=== PATIENT | female | born 1975 | race Caucasian/White ===

== ENCOUNTER → 2020-07-08 07:58 | Outpatient (BNVA) | payer MEDICAID, SELFPAY | PROVIDERS: Family Provider Physician Assistant Medical; Visit Provider Social Worker Clinical | DX: F60.3 Borderline personality disorder (principal); F41.1 Generalized anxiety disorder; F33.2 Major depressive disorder, recurrent severe without psychotic features; F43.12 Post-traumatic stress disorder, chronic | CPT/HCPCS: 90834 ==

== ENCOUNTER 2020-07-17 11:28 | Emergency (ER) | payer MEDICAID, SELFPAY ==
[2020-07-17 11:34] VITALS: BP 163/95; PULSE 103; RESP 18; TEMP 36.3; O2SAT 96; BMI 30.1
--- NOTE | 2020-07-17 11:43 | XRR_ITS ---
PROCEDURE INFORMATION: Exam: XR Lumbosacral Spine, 2 or 3 Views Exam date and time: 07/17/2020 12:00 PM Age: 44 years old Clinical indication: Injury or trauma; Fall; Blunt trauma (contusions or hematomas); Additional info: Back pain S/P fall TECHNIQUE: Imaging protocol: XR of the lumbosacral spine, 2 or 3 views. COMPARISON: CTA Chest w Abd/Pel w* 12/07/2016 11:08 AM FINDINGS: Bones/joints: There are degenerative changes throughout the visualized lower thoracic and lumbar spine including marginal osteophyte formations, endplate degenerative changes, and facet arthropathy. There are mild degenerative changes across the right sacroiliac joint. Soft tissues: Unremarkable. XR/XR lumbar spine 2-3V* [id number] IMPRESSION: There are degenerative changes as described above. No evidence for acute fracture.
--- NOTE | 2020-07-17 11:43 | CTR_ITS ---
PROCEDURE INFORMATION: Exam: CT Cervical Spine Without Contrast Exam date and time: 07/17/2020 12:00 PM Age: 44 years old Clinical indication: Injury or trauma; Fall; Blunt trauma; Additional info: Neck pain S/P fall TECHNIQUE: Imaging protocol: Computed tomography images of the cervical spine without contrast. Radiation optimization: All CT scans at this facility use at least one of these dose optimization techniques: automated exposure control; mA and/or kV adjustment per patient size (includes targeted exams where dose is matched to clinical indication); or iterative reconstruction. COMPARISON: CR Cervical Spine AP/Lat* [id number] 04/05/2015 11:31 AM RADIATION DOSE METRICS: Total DLP (mGy-cm): 604.98 FINDINGS: Vertebrae: There are degenerative changes throughout the visualized spine including marginal osteophyte formations, endplate degenerative changes, and facet arthropathy. C2-C3: There is a disc bulge which is eccentric to the right abutting the anterior surface of the cervical cord. C3-C4: Minimal disc bulge indents the anterior thecal sac. C4-C5: There is a broad-based disc osteophyte complex abutting the anterior surface of the cervical cord. There is moderate narrowing of the left neural foramen and mild to moderate narrowing of the right neural foramen. C5-C6: There is a disc bulge which abuts the anterior surface of the cervical cord. C6-C7: There is a disc bulge with a possible superimposed midline protrusion abutting the anterior surface of the cervical cord. C7-T1: No significant disc protrusion. No severe spinal canal stenosis. No significant neural foraminal narrowing. Soft tissues: Unremarkable. Lungs: Lung apices are normal. CT/CT cervical spin wo con* [id number] IMPRESSION: Multilevel, multifactorial degenerative changes are present as described above. No evidence for acute fracture. Radiation Dose CTDIVOL = (mGy): DLP = 604.98 (mGy-cm)
--- NOTE | 2020-07-17 11:45 | W.ED.BACK ---
HPI - Back Pain/Injury General: Chief Complaint: Back Pain/Injury Stated Complaint: fall yesterday-neck and back pain Time Seen by Provider: 07/17/20 11:31 History of Present Illness: HPI Narrative: 44-year-old female patient presents to the emergency department with neck pain and lower back pain. She reports sustained a fall last night while walking down the stairs. States left ankle gave out causing her to fall down 5 stairs in her home, reports landed on hardwood floor. Denies neck pain after fall last night however awoke this morning with low back and neck pain. 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 She denies further injuries. 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, chronic) Onset (ago): day(s) (1) Timing: constant and progressively worsening Severity: moderate Similar Symptoms Previously: No Quality: dull, aching and spasming Location: lumbar spine (and neck (posterior)) Radiation: none Exacerbating factors: movement and walking Relieving factors: immobilization Context: fall (9 pm while walking down stairs, ankle gave out, slipped and fell down 5 steps on hardwood floor) Associated symptoms: Reports arthralgias (chronic) and numbness (Chronic from Mcdonald spotted fever, neuropathy to extremities); Deny abdominal pain, chills, change in bowel habits, difficulty walking, dysuria, fatigue, fecal incontinence, nausea or weakness Treatments prior to arrival: other (none) Work related injury: No Review of Systems General: Reports: 10 or more systems reviewed and unremarkable except in HPI and below Const: Denies: chills, body aches, fatigue or malaise Eyes: Denies: blurry vision or eye redness ENMT: Denies: throat pain, dental pain or disequilibrium Card: Denies: chest pain, palpitations or irregular heart rhythm Resp: Denies: dyspnea, productive cough, non-productive cough or wheezing GI: Denies: abdominal pain, nausea, fecal incontinence or change in bowel habits : Denies: dysuria Musc: Reports: neck pain, back pain and limited range of motion (posterior neck and lumbar spine); Denies: joint pain, joint swelling, muscle cramps or muscle weakness Skin/Breast: Denies: rash or pruritus Neuro: Denies: headache(s), sensory changes, difficulty walking, dizziness, vertigo, confusion or difficulty communicating thoughts Cj/Lymph: Denies: easy bruising PFSH ED PFSH: Medical History Age related osteoporosis Broken bones right foot - dropfoot Fibromyalgia Heel spur Migraine Unspecified personality disorder Social History Smoking and tobacco status: never smoked Second hand smoke exposure: No Smoking risk assessment/counseling performed?: Yes Tobacco counseling given: counseling >3 minutes Current gender identity: Female Physical Exam Const: COMMON NORMALS: no acute distress, average body habitus, patient oriented x3, healthy appearing, alert and well nourished GENERAL APPEARANCE: cooperative, comfortable, well kempt, well developed and well hydrated HENMT: COMMON NORMALS: normocephalic, Normal external nose present and moist oral mucous membranes HEAD & SCALP: normocephalic NOSE: Normal external nose present Eye: COMMON NORMALS: Equal, round and reactive pupils present and EOMs intact bilaterally GENERAL EYE: appearance normal, both eyes and all related structures PUPIL: Yes Equal, round and reactive pupils present Neck/C-Spine: COMMON NORMALS: full ROM and no lymphadenopathy GENERAL: Yes normal visual inspection, Yes trachea midline, No anterior neck swelling and No tracheal deviation CERVICAL SPINE: Yes cervical ROM normal, Yes pain with cervical ROM with rotation to the right and with rotation to the left, No Cervical spine tenderness, Yes Paracervical muscle tenderness right>left, Yes Paracervical spasm bilateral and Yes Trapezius muscle tenderness right Lymph: LYMPHATIC: no lymphadenopathy noted Chest: COMMONS NORMALS: normal inspection of the chest and normal palpation of entire chest wall Resp: COMMON NORMALS: normal respiratory effort, No retractions, No use of accessory muscles and clear to auscultation bilaterally EFFORT & INSPECTION: Yes able to speak in complete sentences AUSCULTATION: clear to auscultation bilaterally Cardio: COMMON NORMALS: regular rate, regular rhythm, S1 normal heart sound present, S2 normal heart sound present and Peripheral pulses 2+ throughout RATE: regular rate RHYTHM: regular rhythm HEART SOUNDS: S1 normal heart sound present and S2 normal heart sound present PERIPHERAL PULSES: Peripheral pulses 2+ throughout GI: COMMON NORMALS: Normal to inspection, nondistended, normoactive bowel sounds present, Soft to palpation and non-tender INSPECTION: Yes normal to inspection PALPATION: Yes Soft to palpation : COMMON NORMALS: Yes no CVA tenderness BLADDER/KIDNEY EXAM: Yes no CVA tenderness Back/Pelvis: COMMON NORMALS: no CVA tenderness and thoracic and lumbar spine normal to inspection THORACIC SPINE/UPPER BACK: Yes normal to inspection, Yes thoracic ROM normal, No pain with ROM, No thoracic spinal tenderness, No paraspinal muscle tenderness and No paraspinal muscle spasm LUMBAR SPINE/LOWER BACK: Yes normal to inspection, Yes lumbar spinal tenderness Lumbar spinal tenderness location: L3 and L4, Yes paraspinal muscle spasm Lumbar paraspinal muscle spasm: right and Yes straight leg raise negative bilaterally PELVIS: Yes buttocks normal SACROILIAC JOINTS: Yes SI joints normal SACRUM: no ecchymosis COCCYX: no swelling Extremity: COMMON NORMALS: normal to inspection and capillary refill normal Neuro: PIA COMA SCALE: document GCS findings Pia coma scale eye opening: Spontaneous Pia coma scale verbal response: Orientated Pia coma scale motor response: Obey commands Pia coma scale total score: 15 COMMON NORMALS: patient oriented x3 and no focal motor deficits SENSORIUM/ORIENTATION: Yes alert SPEECH: speech normal GAIT: Yes Normal gait present MOTOR EXAM: 5/5 motor strength present throughout Psych: COMMON NORMALS: mental status grossly normal, Normal thought process present and cooperative APPEARANCE: Yes well kempt ACTIVITY/MOTOR BEHAVIOR: Yes appropriate eye contact THOUGHT PROCESS: Normal thought process present Skin: COMMON NORMALS: no rashes or lesions noted and turgor normal GENERAL SKIN EXAM: no rashes or lesions noted and turgor normal Course Vital Signs: Vital signs: Vital Signs Temperature 97.3 F L 07/17/20 11:34 Pulse Rate 103 H 07/17/20 11:34 Respiratory Rate 18 07/17/20 11:34 Blood Pressure 163/95 07/17/20 11:34 Pulse Oximetry 96 07/17/20 11:34 MDM - Back Pain/Injury Imaging Data^: Other Xray: Radiologist's impression: [address] [place] [address] XRay Report Signed Patient: PamelaMansi Unit #: [id number] : 1975 Age/Sex: 44 / F ADM Date: 07/17/20 Loc: ER Room/Bed: Attending Dr: Ordering Provider/Ordering MD: Marlene Lanier Date of Service: 07/17/20 Procedure(s): XR lumbar spine 2-3V* [id number] Accession Number(s): [id number] Report Number: [id number] PROCEDURE INFORMATION: Exam: XR Lumbosacral Spine, 2 or 3 Views Exam date and time: 07/17/2020 12:00 PM Age: 44 years old Clinical indication: Injury or trauma; Fall; Blunt trauma (contusions or hematomas); Additional info: Back pain S/P fall TECHNIQUE: Imaging protocol: XR of the lumbosacral spine, 2 or 3 views. COMPARISON: CTA Chest w Abd/Pel w* 12/07/2016 11:08 AM FINDINGS: Bones/joints: There are degenerative changes throughout the visualized lower thoracic and lumbar spine including marginal osteophyte formations, endplate degenerative changes, and facet arthropathy. There are mild degenerative changes across the right sacroiliac joint. Soft tissues: Unremarkable. XR/XR lumbar spine 2-3V* [id number] IMPRESSION: There are degenerative changes as described above. No evidence for acute fracture. Dictated By: Lorin Nelson MD Signed By: Lorin Nelson MD Signed Date/Time: 07/17/20 1230 DD/ [address]: Radiologist's impression: [address] [address] [address] Scan Report Signed Patient: Mansi Santiago Unit #: [id number] : 1975 Age/Sex: 44 / F ADM Date: 07/17/20 Loc: ER Room/Bed: Attending Dr: Ordering Provider/Ordering MD: Marlene Lanier Date of Service: 07/17/20 Procedure(s): CT cervical spin wo con* [id number] Accession Number(s): [id number] Report Number: [id number] PROCEDURE INFORMATION: Exam: CT Cervical Spine Without Contrast Exam date and time: 07/17/2020 12:00 PM Age: 44 years old Clinical indication: Injury or trauma; Fall; Blunt trauma; Additional info: Neck pain S/P fall TECHNIQUE: Imaging protocol: Computed tomography images of the cervical spine without contrast. Radiation optimization: All CT scans at this facility use at least one of these dose optimization techniques: automated exposure control; mA and/or kV adjustment per patient size (includes targeted exams where dose is matched to clinical indication); or iterative reconstruction. COMPARISON: CR Cervical Spine AP/Lat* [id number] 04/05/2015 11:31 AM RADIATION DOSE METRICS: Total DLP (mGy-cm): 604.98 FINDINGS: Vertebrae: There are degenerative changes throughout the visualized spine including marginal osteophyte formations, endplate degenerative changes, and facet arthropathy. C2-C3: There is a disc bulge which is eccentric to the right abutting the anterior surface of the cervical cord. C3-C4: Minimal disc bulge indents the anterior thecal sac. C4-C5: There is a broad-based disc osteophyte complex abutting the anterior surface of the cervical cord. There is moderate narrowing of the left neural foramen and mild to moderate narrowing of the right neural foramen. C5-C6: There is a disc bulge which abuts the anterior surface of the cervical cord. C6-C7: There is a disc bulge with a possible superimposed midline protrusion abutting the anterior surface of the cervical cord. C7-T1: No significant disc protrusion. No severe spinal canal stenosis. No significant neural foraminal narrowing. Soft tissues: Unremarkable. Lungs: Lung apices are normal. CT/CT cervical spin wo con* [id number] IMPRESSION: Multilevel, multifactorial degenerative changes are present as described above. No evidence for acute fracture. Radiation Dose CTDIVOL = (mGy): DLP = 604.98 (mGy-cm) Dictated By: Lorin Nelson MD Discharge Plan Discharge Patient Disposition: Home Clinical Impression: Fall against object, DDD (degenerative disc disease), cervical, DDD (degenerative disc disease), lumbar Condition: Stable Prescriptions: New methocarbamol 750 mg tablet 750 mg PO Q6H Qty: 20 RF: 0 No Action Zyrtec 10 mg capsule 20 mg PO DAILY PRN (Reason: allergy symptoms) RF: 0 gabapentin 600 mg tablet 600 mg PO BID Qty: 60 RF: 2 doxepin 100 mg capsule 200 mg PO .HS Qty: 60 RF: 2 lamotrigine 25 mg tablet 25 mg PO DAILY Qty: 105 RF: 1 Discharge Orders: Discharge ED (Routine); Ordered 07/17/20 Ordered By: Marlene Lanier Referrals: Дмитрий Coley [Primary Care Provider] - Discharge Diet: Usual diet Discharge Activity: Limit activity as instructed Patient Instructions: Contusion in Adults (ED), Degenerative Disc Disease (ED) Activity Restrictions/Additional Instructions: Take medication with food Return to the emergency department if you develop weakness or inability to feel your extremities, worst headache of your life or other concerning symptoms Follow-up with your primary care provider this week if not improving Rest at home today and tomorrow, apply warm moist heat to the affected areas to help with pain May take Tylenol as needed for pain to supplement pain need Take Advil 3 tablets three times daily as needed for pain, take with food to avoid stomach upset Coding Level of Care Code ED Donor Services Specialist for Chris Fwd Exam Comprehensive
[2020-07-17] MEDS: acetaminophen 325 mg Tablet 650 MG PO (12:51)
[2020-07-17] MEDS: orphenadrine 30 mg/mL Inj 2 mL 60 MG IM (12:52)
[2020-07-17 12:54] VITALS: BP 178/97; PULSE 96; RESP 18; O2SAT 97
== END 2020-07-17 12:54 | disposition home or self-care (01) ==
PROVIDERS: Emergency Provider Nurse Practitioner Family; PCP Physician Assistant Medical
DX: M50.30 Other cervical disc degeneration, unspecified cervical region (principal); M51.36 Other intervertebral disc degeneration, lumbar region
CPT/HCPCS: 12345; 72100; 72125; 96372; 99281; 99283; J2360

== ENCOUNTER → 2020-07-19 08:11 | Outpatient (BNVA) | payer MEDICAID, SELFPAY | PROVIDERS: PCP Physician Assistant Medical; Visit Provider Social Worker Clinical | DX: F41.1 Generalized anxiety disorder (principal); F33.2 Major depressive disorder, recurrent severe without psychotic features; F43.12 Post-traumatic stress disorder, chronic; F60.3 Borderline personality disorder | CPT/HCPCS: 90834 ==

== ENCOUNTER → 2020-08-02 08:11 | Outpatient (BNVA) | payer MEDICAID, SELFPAY | PROVIDERS: Family Provider Physician Assistant Medical; Visit Provider Social Worker Clinical | DX: F60.3 Borderline personality disorder (principal); F41.1 Generalized anxiety disorder; F33.2 Major depressive disorder, recurrent severe without psychotic features; F43.12 Post-traumatic stress disorder, chronic | CPT/HCPCS: 90834 ==

== ENCOUNTER → 2020-08-09 08:19 | Outpatient (BNVA) | payer MEDICAID, SELFPAY | PROVIDERS: Family Provider Physician Assistant Medical; Visit Provider Social Worker Clinical | DX: F60.3 Borderline personality disorder (principal); F41.1 Generalized anxiety disorder; F33.2 Major depressive disorder, recurrent severe without psychotic features; F43.12 Post-traumatic stress disorder, chronic | CPT/HCPCS: 90834 ==

== ENCOUNTER → 2020-08-16 08:53 | Outpatient (BNVA) | payer MEDICAID, SELFPAY | PROVIDERS: Family Provider Physician Assistant Medical; Visit Provider Social Worker Clinical | DX: F60.3 Borderline personality disorder (principal); F41.1 Generalized anxiety disorder; F33.2 Major depressive disorder, recurrent severe without psychotic features; F43.12 Post-traumatic stress disorder, chronic | CPT/HCPCS: 90834 ==

== ENCOUNTER → 2020-08-25 07:52 | Outpatient (BNVA) | payer MEDICAID, SELFPAY | PROVIDERS: Family Provider Physician Assistant Medical; Visit Provider Social Worker Clinical | DX: F60.3 Borderline personality disorder (principal); F41.1 Generalized anxiety disorder; F33.2 Major depressive disorder, recurrent severe without psychotic features; F43.12 Post-traumatic stress disorder, chronic | CPT/HCPCS: 90834 ==

== ENCOUNTER → 2020-09-01 08:10 | Outpatient (BNVA) | payer MEDICAID, SELFPAY | PROVIDERS: Family Provider Physician Assistant Medical; Visit Provider Social Worker Clinical | DX: F60.3 Borderline personality disorder (principal); F33.2 Major depressive disorder, recurrent severe without psychotic features; F41.1 Generalized anxiety disorder; F43.12 Post-traumatic stress disorder, chronic | CPT/HCPCS: 90832 ==

== ENCOUNTER → 2020-09-08 07:33 | Outpatient (BNVA) | payer MEDICAID, SELFPAY | PROVIDERS: Family Provider Physician Assistant Medical; Visit Provider Social Worker Clinical | DX: F60.3 Borderline personality disorder (principal); F41.1 Generalized anxiety disorder; F33.2 Major depressive disorder, recurrent severe without psychotic features; F43.12 Post-traumatic stress disorder, chronic | CPT/HCPCS: 90834 ==

== ENCOUNTER → 2020-09-22 07:39 | Outpatient (BNVA) | payer MEDICAID, SELFPAY | PROVIDERS: Family Provider Physician Assistant Medical; Visit Provider Social Worker Clinical | DX: F60.3 Borderline personality disorder (principal); F41.1 Generalized anxiety disorder; F33.2 Major depressive disorder, recurrent severe without psychotic features; F43.12 Post-traumatic stress disorder, chronic | CPT/HCPCS: 90834 ==

== ENCOUNTER → 2020-09-29 07:31 | Outpatient (BNVA) | payer MEDICAID, SELFPAY | PROVIDERS: Family Provider Physician Assistant Medical; Visit Provider Social Worker Clinical | DX: F60.3 Borderline personality disorder (principal); F41.1 Generalized anxiety disorder; F33.2 Major depressive disorder, recurrent severe without psychotic features; F43.12 Post-traumatic stress disorder, chronic | CPT/HCPCS: 90834 ==

== ENCOUNTER → 2020-10-06 08:06 | Outpatient (BNVA) | payer MEDICAID, SELFPAY | PROVIDERS: Family Provider Physician Assistant Medical; Visit Provider Psychiatry & Neurology Psychiatry | DX: F60.3 Borderline personality disorder (principal); F41.1 Generalized anxiety disorder; F33.2 Major depressive disorder, recurrent severe without psychotic features; F43.12 Post-traumatic stress disorder, chronic | CPT/HCPCS: 99213 ==

== ENCOUNTER → 2020-10-13 07:32 | Outpatient (BNVA) | payer MEDICAID, SELFPAY | PROVIDERS: Family Provider Physician Assistant Medical; Visit Provider Social Worker Clinical | DX: F60.3 Borderline personality disorder (principal); F41.1 Generalized anxiety disorder; F33.2 Major depressive disorder, recurrent severe without psychotic features; F43.12 Post-traumatic stress disorder, chronic | CPT/HCPCS: 90834 ==

== ENCOUNTER → 2020-11-08 11:00 | Outpatient (BNVA) | payer MEDICAID, SELFPAY | PROVIDERS: Family Provider Physician Assistant Medical; Visit Provider Social Worker Clinical | DX: F43.12 Post-traumatic stress disorder, chronic (principal); F60.3 Borderline personality disorder | CPT/HCPCS: 90834 ==

== ENCOUNTER → 2020-11-17 07:52 | Outpatient (BNVA) | payer MEDICAID, SELFPAY | PROVIDERS: Family Provider Physician Assistant Medical; Visit Provider Social Worker Clinical | DX: F60.3 Borderline personality disorder (principal); F41.1 Generalized anxiety disorder; F33.2 Major depressive disorder, recurrent severe without psychotic features; F43.12 Post-traumatic stress disorder, chronic | CPT/HCPCS: 90834 ==

== ENCOUNTER → 2020-11-24 07:27 | Outpatient (BNVA) | payer MEDICAID, SELFPAY | PROVIDERS: Family Provider Physician Assistant Medical; Visit Provider Social Worker Clinical | DX: F60.3 Borderline personality disorder (principal); F41.1 Generalized anxiety disorder; F33.2 Major depressive disorder, recurrent severe without psychotic features; F43.12 Post-traumatic stress disorder, chronic | CPT/HCPCS: 90834 ==

== ENCOUNTER → 2020-11-29 07:48 | Outpatient (BNVA) | payer MEDICAID, SELFPAY | PROVIDERS: Family Provider Physician Assistant Medical; Visit Provider Social Worker Clinical | DX: F60.3 Borderline personality disorder (principal); F41.1 Generalized anxiety disorder; F33.2 Major depressive disorder, recurrent severe without psychotic features; F43.12 Post-traumatic stress disorder, chronic | CPT/HCPCS: 90834 ==

== ENCOUNTER 2020-12-01 07:52 | Outpatient (CLI) | payer MEDICAID, SELFPAY ==
--- NOTE | 2020-12-01 07:58 | MM_ITS ---
WS: [id number] BILATERAL DIGITAL SCREENING MAMMOGRAPHY WITH CAD CLINICAL INFORMATION: SCREENING HISTORY: Screening mammogram. No current complaints. COMPARISON: TECHNIQUE: Bilateral CC and MLO views. FINDINGS: The breasts are composed of heterogeneous fibroglandular density tissue, which can limit the detectio n of small underlying mass lesions. No suspicious mass, asymmetry, calcifications, or architectural d istortion. No evidence of malignancy. MM/[place] [id number] IMPRESSION: BI-RADS: 1-Negative FOLLOW UP: 1 Year Follow-up Recommend return to annual screening mammography.
== END 2020-12-01 07:53 ==
LOC: RADSHAW 07:53
PROVIDERS: Family Provider Physician Assistant Medical; PCP Physician Assistant Medical; Visit Provider Physician Assistant Medical
DX: F60.3 Borderline personality disorder (principal); F41.1 Generalized anxiety disorder; F33.2 Major depressive disorder, recurrent severe without psychotic features; F43.12 Post-traumatic stress disorder, chronic
CPT/HCPCS: 90834; 77067; 99213

== ENCOUNTER → 2020-12-22 08:00 | Outpatient (BNVA) | payer MEDICAID, SELFPAY | PROVIDERS: Family Provider Physician Assistant Medical; PCP Physician Assistant Medical; Visit Provider Social Worker Clinical | DX: F60.3 Borderline personality disorder (principal); F41.1 Generalized anxiety disorder; F33.2 Major depressive disorder, recurrent severe without psychotic features; F43.12 Post-traumatic stress disorder, chronic | CPT/HCPCS: 90834 ==

== ENCOUNTER → 2021-01-19 07:58 | Outpatient (BNVA) | payer MEDICAID, SELFPAY | PROVIDERS: Family Provider Physician Assistant Medical; PCP Physician Assistant Medical; Visit Provider Social Worker Clinical | DX: F60.3 Borderline personality disorder (principal); F41.1 Generalized anxiety disorder; F33.2 Major depressive disorder, recurrent severe without psychotic features; F43.12 Post-traumatic stress disorder, chronic | CPT/HCPCS: 90834 ==

== ENCOUNTER → 2021-01-26 07:50 | Outpatient (BNVA) | payer MEDICAID, SELFPAY | PROVIDERS: Family Provider Physician Assistant Medical; PCP Physician Assistant Medical; Visit Provider Social Worker Clinical | DX: F60.3 Borderline personality disorder (principal); F41.1 Generalized anxiety disorder; F33.2 Major depressive disorder, recurrent severe without psychotic features; F43.12 Post-traumatic stress disorder, chronic | CPT/HCPCS: 90834 ==

== ENCOUNTER → 2021-02-02 07:38 | Outpatient (BNVA) | payer MEDICAID, SELFPAY | PROVIDERS: Family Provider Physician Assistant Medical; PCP Physician Assistant Medical; Visit Provider Social Worker Clinical | DX: F60.3 Borderline personality disorder (principal); F41.1 Generalized anxiety disorder; F33.2 Major depressive disorder, recurrent severe without psychotic features; F43.12 Post-traumatic stress disorder, chronic | CPT/HCPCS: 90834 ==

== ENCOUNTER → 2021-02-09 07:37 | Outpatient (BNVA) | payer MEDICAID, SELFPAY | PROVIDERS: Family Provider Physician Assistant Medical; PCP Physician Assistant Medical; Visit Provider Social Worker Clinical | DX: F60.3 Borderline personality disorder (principal); F41.1 Generalized anxiety disorder; F33.2 Major depressive disorder, recurrent severe without psychotic features; F43.12 Post-traumatic stress disorder, chronic | CPT/HCPCS: 90832 ==

== ENCOUNTER → 2021-02-16 09:02 | Outpatient (BNVA) | payer MEDICAID, SELFPAY | PROVIDERS: Family Provider Physician Assistant Medical; PCP Physician Assistant Medical; Visit Provider Social Worker Clinical | DX: F60.3 Borderline personality disorder (principal); F41.1 Generalized anxiety disorder; F33.2 Major depressive disorder, recurrent severe without psychotic features; F43.12 Post-traumatic stress disorder, chronic | CPT/HCPCS: 90834 ==

== ENCOUNTER → 2021-03-02 08:59 | Outpatient (BNVA) | payer MEDICAID, SELFPAY | PROVIDERS: Family Provider Physician Assistant Medical; PCP Physician Assistant Medical; Visit Provider Social Worker Clinical | DX: F60.3 Borderline personality disorder (principal); F41.1 Generalized anxiety disorder; F33.2 Major depressive disorder, recurrent severe without psychotic features; F43.12 Post-traumatic stress disorder, chronic | CPT/HCPCS: 90834 ==

== ENCOUNTER → 2021-03-09 08:24 | Outpatient (BNVA) | payer MEDICAID, SELFPAY | PROVIDERS: Family Provider Physician Assistant Medical; PCP Physician Assistant Medical; Visit Provider Psychiatry & Neurology Psychiatry | DX: F60.3 Borderline personality disorder (principal); F41.1 Generalized anxiety disorder; F33.2 Major depressive disorder, recurrent severe without psychotic features; F43.12 Post-traumatic stress disorder, chronic | CPT/HCPCS: 99213 ==

== ENCOUNTER → 2021-03-16 08:38 | Outpatient (BNVA) | payer MEDICAID, SELFPAY | PROVIDERS: Family Provider Physician Assistant Medical; PCP Physician Assistant Medical; Visit Provider Social Worker Clinical | DX: F60.3 Borderline personality disorder (principal); F41.1 Generalized anxiety disorder; F33.2 Major depressive disorder, recurrent severe without psychotic features; F43.12 Post-traumatic stress disorder, chronic | CPT/HCPCS: 90834 ==

== ENCOUNTER → 2021-03-23 10:07 | Outpatient (BNVA) | payer MEDICAID, SELFPAY | PROVIDERS: Family Provider Physician Assistant Medical; PCP Physician Assistant Medical; Visit Provider Social Worker Clinical | DX: F60.3 Borderline personality disorder (principal); F41.1 Generalized anxiety disorder; F33.2 Major depressive disorder, recurrent severe without psychotic features; F43.12 Post-traumatic stress disorder, chronic | CPT/HCPCS: 90834 ==

== ENCOUNTER → 2021-04-06 08:04 | Outpatient (BNVA) | payer MEDICAID, SELFPAY | PROVIDERS: Family Provider Physician Assistant Medical; PCP Physician Assistant Medical; Visit Provider Social Worker Clinical | DX: F60.3 Borderline personality disorder (principal); F41.1 Generalized anxiety disorder; F33.2 Major depressive disorder, recurrent severe without psychotic features; F43.12 Post-traumatic stress disorder, chronic | CPT/HCPCS: 90834 ==

== ENCOUNTER → 2021-04-20 08:35 | Outpatient (BNVA) | payer MEDICAID, SELFPAY | PROVIDERS: Family Provider Physician Assistant Medical; PCP Physician Assistant Medical; Visit Provider Social Worker Clinical | DX: F60.3 Borderline personality disorder (principal); F41.1 Generalized anxiety disorder; F33.2 Major depressive disorder, recurrent severe without psychotic features; F43.12 Post-traumatic stress disorder, chronic | CPT/HCPCS: 90834 ==

== ENCOUNTER → 2021-05-04 08:08 | Outpatient (BNVA) | payer MEDICAID, SELFPAY | PROVIDERS: Family Provider Physician Assistant Medical; PCP Physician Assistant Medical; Visit Provider Social Worker Clinical | DX: F60.3 Borderline personality disorder (principal); F41.1 Generalized anxiety disorder; F33.2 Major depressive disorder, recurrent severe without psychotic features; F43.12 Post-traumatic stress disorder, chronic | CPT/HCPCS: 90834 ==

== ENCOUNTER → 2021-05-11 08:22 | Outpatient (BNVA) | payer MEDICAID, SELFPAY | PROVIDERS: Family Provider Physician Assistant Medical; PCP Physician Assistant Medical; Visit Provider Social Worker Clinical | DX: F60.3 Borderline personality disorder (principal); F41.1 Generalized anxiety disorder; F33.2 Major depressive disorder, recurrent severe without psychotic features; F43.12 Post-traumatic stress disorder, chronic | CPT/HCPCS: 90834 ==

== ENCOUNTER → 2021-05-18 08:01 | Outpatient (BNVA) | payer MEDICAID, SELFPAY | PROVIDERS: Family Provider Physician Assistant Medical; PCP Physician Assistant Medical; Visit Provider Social Worker Clinical | DX: F60.3 Borderline personality disorder (principal); F41.1 Generalized anxiety disorder; F33.2 Major depressive disorder, recurrent severe without psychotic features; F43.12 Post-traumatic stress disorder, chronic | CPT/HCPCS: 90834 ==

== ENCOUNTER → 2021-05-25 09:57 | Outpatient (BNVA) | payer MEDICAID, SELFPAY | PROVIDERS: Family Provider Physician Assistant Medical; PCP Physician Assistant Medical; Visit Provider Social Worker Clinical | DX: F60.3 Borderline personality disorder (principal); F41.1 Generalized anxiety disorder; F33.2 Major depressive disorder, recurrent severe without psychotic features; F43.12 Post-traumatic stress disorder, chronic | CPT/HCPCS: 90834 ==

== ENCOUNTER → 2021-06-01 09:00 | Outpatient (BNVA) | payer MEDICAID, SELFPAY | PROVIDERS: Family Provider Physician Assistant Medical; PCP Physician Assistant Medical; Visit Provider Social Worker Clinical | DX: F60.3 Borderline personality disorder (principal); F41.1 Generalized anxiety disorder; F33.2 Major depressive disorder, recurrent severe without psychotic features; F43.12 Post-traumatic stress disorder, chronic | CPT/HCPCS: 90834 ==

== ENCOUNTER → 2021-06-22 08:45 | Outpatient (BNVA) | payer MEDICAID, SELFPAY | PROVIDERS: Family Provider Physician Assistant Medical; PCP Physician Assistant Medical; Visit Provider Psychiatry & Neurology Psychiatry | DX: F60.3 Borderline personality disorder (principal); F41.1 Generalized anxiety disorder; F33.2 Major depressive disorder, recurrent severe without psychotic features; F43.12 Post-traumatic stress disorder, chronic | CPT/HCPCS: 99213 ==

== ENCOUNTER → 2021-06-29 07:57 | Outpatient (BNVA) | payer MEDICAID, SELFPAY | PROVIDERS: Family Provider Physician Assistant Medical; PCP Physician Assistant Medical; Visit Provider Social Worker Clinical | DX: F60.3 Borderline personality disorder (principal); F33.2 Major depressive disorder, recurrent severe without psychotic features; F41.1 Generalized anxiety disorder; F43.12 Post-traumatic stress disorder, chronic | CPT/HCPCS: 90834 ==

== ENCOUNTER → 2021-07-06 07:58 | Outpatient (BNVA) | payer MEDICAID, SELFPAY | PROVIDERS: Family Provider Physician Assistant Medical; PCP Physician Assistant Medical; Visit Provider Social Worker Clinical | DX: F60.3 Borderline personality disorder (principal); F41.1 Generalized anxiety disorder; F33.2 Major depressive disorder, recurrent severe without psychotic features; F43.12 Post-traumatic stress disorder, chronic | CPT/HCPCS: 90791 ==

== ENCOUNTER → 2021-07-27 07:21 | Outpatient (BNVA) | payer MEDICAID, SELFPAY | PROVIDERS: Family Provider Physician Assistant Medical; PCP Physician Assistant Medical; Visit Provider Social Worker Clinical | DX: F60.3 Borderline personality disorder (principal); F41.1 Generalized anxiety disorder; F33.2 Major depressive disorder, recurrent severe without psychotic features; F43.12 Post-traumatic stress disorder, chronic | CPT/HCPCS: 90834 ==

== ENCOUNTER → 2021-08-17 08:00 | Outpatient (BNVA) | payer MEDICAID, SELFPAY | PROVIDERS: Family Provider Physician Assistant Medical; PCP Physician Assistant Medical; Visit Provider Social Worker Clinical | DX: F60.3 Borderline personality disorder (principal); F41.1 Generalized anxiety disorder; F33.2 Major depressive disorder, recurrent severe without psychotic features; F43.12 Post-traumatic stress disorder, chronic | CPT/HCPCS: 90832; 90834 ==

== ENCOUNTER → 2021-09-07 07:48 | Outpatient (BNVA) | payer MEDICAID, SELFPAY | PROVIDERS: Family Provider Physician Assistant Medical; PCP Physician Assistant Medical; Visit Provider Social Worker Clinical | DX: F60.3 Borderline personality disorder (principal); F33.2 Major depressive disorder, recurrent severe without psychotic features; F41.1 Generalized anxiety disorder; F43.12 Post-traumatic stress disorder, chronic | CPT/HCPCS: 90834 ==

== ENCOUNTER → 2021-09-28 08:01 | Outpatient (BNVA) | payer MEDICAID, SELFPAY | PROVIDERS: Family Provider Physician Assistant Medical; PCP Physician Assistant Medical; Visit Provider Social Worker Clinical | DX: F33.2 Major depressive disorder, recurrent severe without psychotic features (principal); F60.3 Borderline personality disorder; F41.1 Generalized anxiety disorder; F43.12 Post-traumatic stress disorder, chronic | CPT/HCPCS: 90832 ==

== ENCOUNTER → 2021-10-19 08:52 | Outpatient (BNVA) | payer MEDICAID, SELFPAY | PROVIDERS: Family Provider Physician Assistant Medical; PCP Physician Assistant Medical; Visit Provider Social Worker Clinical | DX: F60.3 Borderline personality disorder (principal); F41.1 Generalized anxiety disorder; F33.2 Major depressive disorder, recurrent severe without psychotic features; F43.12 Post-traumatic stress disorder, chronic | CPT/HCPCS: 90834 ==

== ENCOUNTER → 2021-10-26 07:46 | Outpatient (BNVA) | payer MEDICAID, SELFPAY | PROVIDERS: Family Provider Physician Assistant Medical; PCP Physician Assistant Medical; Visit Provider Social Worker Clinical | DX: F60.3 Borderline personality disorder (principal); F41.1 Generalized anxiety disorder; F33.2 Major depressive disorder, recurrent severe without psychotic features; F43.12 Post-traumatic stress disorder, chronic | CPT/HCPCS: 90834 ==

== ENCOUNTER → 2021-11-02 08:00 | Outpatient (BNVA) | payer MEDICAID, SELFPAY | PROVIDERS: Family Provider Physician Assistant Medical; PCP Physician Assistant Medical; Visit Provider Social Worker Clinical | DX: F60.3 Borderline personality disorder (principal); F41.1 Generalized anxiety disorder; F33.2 Major depressive disorder, recurrent severe without psychotic features; F43.12 Post-traumatic stress disorder, chronic | CPT/HCPCS: 90834 ==

== ENCOUNTER → 2021-11-09 07:26 | Outpatient (BNVA) | payer MEDICAID, SELFPAY | PROVIDERS: Family Provider Physician Assistant Medical; PCP Physician Assistant Medical; Visit Provider Social Worker Clinical | DX: F60.3 Borderline personality disorder (principal); F33.2 Major depressive disorder, recurrent severe without psychotic features; F41.1 Generalized anxiety disorder; F43.12 Post-traumatic stress disorder, chronic | CPT/HCPCS: 90834 ==

== ENCOUNTER → 2021-11-16 07:45 | Outpatient (BNVA) | payer MEDICAID, SELFPAY | PROVIDERS: Family Provider Physician Assistant Medical; PCP Physician Assistant Medical; Visit Provider Psychiatry & Neurology Psychiatry | DX: F60.3 Borderline personality disorder (principal); F41.1 Generalized anxiety disorder; F33.2 Major depressive disorder, recurrent severe without psychotic features; F43.12 Post-traumatic stress disorder, chronic | CPT/HCPCS: 99213 ==

== ENCOUNTER → 2021-11-30 07:35 | Outpatient (BNVA) | payer MEDICAID, SELFPAY | PROVIDERS: Family Provider Physician Assistant Medical; PCP Physician Assistant Medical; Visit Provider Social Worker Clinical | DX: F60.3 Borderline personality disorder (principal); F41.1 Generalized anxiety disorder; F33.2 Major depressive disorder, recurrent severe without psychotic features; F43.12 Post-traumatic stress disorder, chronic | CPT/HCPCS: 90834 ==

== ENCOUNTER → 2021-12-21 07:25 | Outpatient (BNVA) | payer MEDICAID, SELFPAY | PROVIDERS: Family Provider Physician Assistant Medical; PCP Physician Assistant Medical; Visit Provider Social Worker Clinical | DX: F60.3 Borderline personality disorder (principal); F41.1 Generalized anxiety disorder; F33.2 Major depressive disorder, recurrent severe without psychotic features; F43.12 Post-traumatic stress disorder, chronic | CPT/HCPCS: 90834 ==

== ENCOUNTER → 2022-01-04 06:07 | Outpatient (BNVA) | payer MEDICAID, SELFPAY | PROVIDERS: Family Provider Physician Assistant Medical; PCP Physician Assistant Medical; Visit Provider Social Worker Clinical | DX: F60.3 Borderline personality disorder (principal); F41.1 Generalized anxiety disorder; F33.2 Major depressive disorder, recurrent severe without psychotic features; F43.12 Post-traumatic stress disorder, chronic | CPT/HCPCS: 90834 ==

== ENCOUNTER → 2022-01-18 07:33 | Outpatient (BNVA) | payer MEDICAID, SELFPAY | PROVIDERS: Family Provider Physician Assistant Medical; PCP Physician Assistant Medical; Visit Provider Social Worker Clinical | DX: F60.3 Borderline personality disorder (principal); F41.1 Generalized anxiety disorder; F33.2 Major depressive disorder, recurrent severe without psychotic features; F43.12 Post-traumatic stress disorder, chronic | CPT/HCPCS: 90834 ==

== ENCOUNTER 2024-06-09 08:47 | Outpatient (CLI) | payer OTHER, SELFPAY ==
--- NOTE | 2024-06-09 09:21 | ECG_ITS ---
[facility]: [facility]09 Pat Name: Mansi Levinepartment: Room: Gender: Female Logistics Supervisor: : 1975 Requested By: Wendy Whittington Order Number: [id number] Susana MD: Panchito Zaragoza M.D. Interpretive Statements LEXISCAN SESTAMIBI STRESS TEST Procedure: At the baseline, the blood pressure was 137/84 mmHg with a heart rate of 74 bpm. The electrocardiogram showed normal sinus rhythm, normal axis with normal ST and T's. The Lexiscan was infused over a period of 20 seconds. A total of 0.4 mg of Lexiscan was infused. The stress phase was continued for a total of 5 minutes. Heart rate was at the end of stress phase was 97 bpm and a blood pressure of 137/85 mmHg. The EKG at the peak infusion revealed normal sinus rhythm with no significant ST-T wave changes. Sestamibi was injected 20 seconds after the Lexiscan infusion. Blood pressure at the end of recovery phase was 133/79 mmHg with a heart rate of 84 bpm. Conclusion: 1. Normal EKG response to Lexiscan infusion 2. No Lexiscan induced chest pain or cardiac arrhythmia. 3. Normal blood pressure and heart rate response. 4. Sestamibi/sestamibi perfusion scan pending; see separate report. Electronically Signed On 06-24-2024 20:02:54 PLANT SENIOR MANAGER by Panchito Zaragoza M.D. [email or web address]
[2024-06-09 09:22] VITALS: BMI 37.2
--- NOTE | 2024-06-09 09:22 | NMCV_ITS ---
NM sera perf SPECT r/s* [id number] Mansi Mercado Age: 48 Gender: F : 1975 Exam Date: 06/09/2024 09:22 Ordering Phys: Wendy Whittington Technologist: MAJO Hernández Exam Location: [facility] Indications: cp STRESS TEST [facility] IMAGE PROTOCOL Rest/Stress 1 Lexiscan Day Radiopharmaceutical Dose (mCi) Administration Site Administered by Rest: Tc-99m 11 IV Ashley Perez, SURGICAL DENTAL ASSISTANT Sestamibi Stress:Tc-99m 33 IV Ashley Chris, SURGICAL DENTAL ASSISTANT Sestamibi Rest: 09-Jun-2024 60 Discovery 630 Stress: 09-Jun-2024 30 Discovery 630 0.4mg Lexiscan.images obtained in supine and prone position. SPECT RESULTS Technical Quality: Good Raw Data Analysis: Normal Image Corrections: No attenuation or motion correction applied Summed Stress Score: 3 Summed Rest Score: 4 Summed Difference Score: 1 PERFUSION FINDINGS Medium sized area of fixed perfusion defect noted in mid to distal anterior anteroseptal wall suggestive of old myocardial infarction versus scarring without ischemia. Small area of basal inferior septal wall fixed perfusion defect noted suggestive of old myocardial infarction versus scarring. FUNCTIONAL RESULTS (calculated via Gated SPECT) Stress Image LV EF (%): 74 Stress EDV (mL):76 TID: 1.05 Stress ESV (mL):20 FUNCTIONAL FINDINGS: Global hypokinesis IMPRESSIONS Medium sized area of old myocardial infarction versus scarring noted in mid to distal anterior and anteroseptal wall without vickie-infarct ischemia. Basal small area of fixed perfusion defect noted in the inferoseptal region without ischemia. This study is negative for ischemia. EKG segment will be documented separately. Terrence Vallejo MD (Electronically Signed) Final Date: 10 June 2024 14:23 S
[2024-06-09] MEDS: regadenoson 0.4 Mg/5 ml Syringe IVP (10:29)
[2024-06-09 10:48] VITALS: BP 133/79; PULSE 85
== END 2024-06-09 08:48 | disposition home or self-care (01) ==
LOC: CDL 08:49
PROVIDERS: PCP Nurse Practitioner Family; Visit Provider Nurse Practitioner Family
DX: R55 Syncope and collapse (principal); R06.02 Shortness of breath
CPT/HCPCS: 36415; 78452; 93017; 96374; A9500; J2785

== ENCOUNTER → 2024-07-02 15:29 | Outpatient (BNVA) | payer OTHER, MEDICAID, SELFPAY | PROVIDERS: PCP Nurse Practitioner Family; Visit Provider Podiatrist Foot & Ankle Surgery | DX: M79.671 Pain in right foot (principal); M79.672 Pain in left foot; M76.822 Posterior tibial tendinitis, left leg | CPT/HCPCS: 73630 ==

== ENCOUNTER 2024-11-19 07:42 | Outpatient (CLI) | payer OTHER, SELFPAY ==
--- NOTE | 2024-11-19 08:00 | USCV_ITS ---
AliyahLaylaMansi esparza Age: 48 Gender: F : 1975 Exam Date: 11/19/2024 08:04 Ordering Phys: Terrence Vallejo MD ([email or web address]) Technologist: AMOS Exam Location: [facility] [place] Indication: CP, SOB BP: 120 / 78 HR: 84 Rhythm: Sinus Technical Quality: Adequate MEASUREMENTS (Male / Female) Normal Values 2D ECHO LV Diastolic Diameter PLAX 5.5 cm 4.2 - 5.9 / 3.9 - 5.3 cm IVS Diastolic Thickness 0.8 cm 0.6 - 1.0 / 0.6 - 0.9 cm IVS Systolic Thickness 1.5 cm LVPW Diastolic Thickness 0.7 cm 0.6 - 1.0 / 0.6 - 0.9 cm LVPW Systolic Thickness 1.2 cm LVOT Diameter 1.7 cm LV Ejection Fraction 2D Teich 66.7 % LV Ejection Fraction MOD 4C 62.6 % LV Ejection Fraction MOD 2C 63.3 % LV Ejection Fraction 2C AL 63.4 % LA Diameter 3.0 cm RA Systolic Volume 4C AL 36.5 ml RA Systolic Volume 4C MOD 34.7 ml Aorta at Sinotubular Diameter 2.3 cm IVC Diameter 1.9 cm M-MODE LA Ao Ratio MM 1.3 AV Cusp Separation MM 1.5 cm DOPPLER AV Peak Velocity 117.0 cm/s AV Area Cont Eq vti 2.0 cm squared AV Area Cont Eq pk 2.2 cm squared MV Peak Velocity 91.0 cm/s MV Area PHT 4.8 cm squared Mitral E to A Ratio 1.1 TR Peak Velocity 85.0 cm/s TR Peak Gradient 2.9 mmHg TV Peak E Velocity 79.0 cm/s PV Peak Velocity 104.0 cm/s FINDINGS Left Ventricle Normal left ventricular size, systolic function and wall thickness, with no regional wall motion abnormalities. Left ventricular ejection fraction is estimated at 60 %. Normal diastolic function. Right Ventricle The right ventricle is normal in size and function. Right Atrium The right atrium is normal in size. Left Atrium The left atrium is normal in size. Mitral Valve Mildly thickened mitral valve. No mitral valve stenosis. Mild mitral valve regurgitation. Aortic Valve Structurally normal aortic valve without significant sclerosis or stenosis. There is no aortic regurgitation. Tricuspid Valve Structurally normal tricuspid valve without significant stenosis or regurgitation. Pulmonary artery systolic pressure is normal. Pulmonic Valve Structurally normal pulmonic valve without significant stenosis. There is no pulmonic regurgitation. Pericardium Normal pericardium without effusion. Aorta Normal ascending aorta dimension. IVC The inferior vena cava appears normal. CONCLUSIONS Normal left ventricular size, systolic function and wall thickness, with no regional wall motion abnormalities. Left ventricular ejection fraction is estimated at 60 %. Normal diastolic function. Mildly thickened mitral valve. No mitral valve stenosis. Mild mitral valve regurgitation. There is no pericardial effusion. Right atrial pressure is around 5 mm of mercury. Terrence Vallejo MD (Electronically Signed) Final Date: 06 Dec 2024 17:56 S
== END 2024-11-19 07:43 | disposition home or self-care (01) ==
PROVIDERS: PCP Nurse Practitioner Family; Visit Provider Internal Medicine Cardiovascular Disease
DX: R07.9 Chest pain, unspecified (principal); R06.02 Shortness of breath; I34.0 Nonrheumatic mitral (valve) insufficiency
CPT/HCPCS: 93306